=== PATIENT | male | born 1965 | race Caucasian/White ===

== ENCOUNTER 2016-11-13 04:27 | Outpatient (CLI) | payer MEDICARE, MEDICAID ==
[2016-11-13 05:52] LABS: Hemoglobin A1c 5.3 % (4.0-6.0)
== END 2016-11-13 04:28 | disposition home or self-care (01) ==
LOC: BURLABSP 04:27
PROVIDERS: ATTEND Clinical Nurse Specialist Medical-Surgical
DX: E11.65 Type 2 diabetes mellitus with hyperglycemia (principal); I10 Essential (primary) hypertension
CPT/HCPCS: 36415; 83036

== ENCOUNTER 2017-04-30 06:22 | Outpatient (CLI) | payer MEDICARE, MEDICAID ==
--- NOTE | 2017-04-30 07:37 | RAD ---
ABDOMEN: Date: 04/30/17 Supine views of the abdomen were obtained. FINDINGS: Gas is present in large and small bowel. There is some slight distention of the small bowel, but gas appears to be present in all segments. There is a little bit of organization of the small bowel, but not much. There is an abundance of fecal material in the colon. Tubing is seen in the abdomen, but I assume it is from a PAPER [employer]RI[employer] shunt. No calcifications of concern were seen. IMPRESSION: 1. Mild constipation. 2. Nonspecific bowel gas pattern. Currently, this appears a bit more like an ileus than an early obs truction. The latter is not completely excluded, however. If patient's symptoms are suggestive or pro isabelle further, then a CT would be needed to further investigate. POS: HOME
== END 2017-04-30 06:23 | disposition home or self-care (01) ==
LOC: BURRAD 06:22
PROVIDERS: ATTEND Family Medicine
DX: R19.7 Diarrhea, unspecified (principal); K59.00 Constipation, unspecified
CPT/HCPCS: 74018